=== PATIENT | male | born 1955 ===

== ENCOUNTER 2017-08-01 13:41 | Emergency (ER) | payer MEDICAID, MEDICARE ==
[2017-08-01 14:22] VITALS: O2SAT 98
--- NOTE | 2017-08-01 14:39 | ED PDOC ---
Arrival/HPI - General Historian: Patient - History of Present Illness Time/Duration: Other (see hpi) Context: Home <Matthew Pa - Last Filed: 08/01/17 15:08> <Nicci Davila - Last Filed: 08/05/17 09:51> - General Chief Complaint: Lower Extremity Problem/Injury Time Seen by Provider: 08/01/17 14:39 - History of Present Illness Narrative History of Present Illness (Text): 08/01/17 14:39 This 61 yo male with a pmh drug abuse, on Methadone, presents to this ED c/o arthralgia, and myalgias x 6 days. Patient stated he attends a Methadone clinic in [place], where he lives. However due to family emergency, he came to [place], and he has not taken Methadone since he left [place]. Patient denies sob, cp, abdominal pain, recent illness, fever, or abnormal gait. (Matthew Pa) Past Medical History - Provider Review Nursing Documentation Reviewed: Yes - Cardiac Hx Cardiac Disorders: Yes Hx Hypertension: Yes - Pulmonary Hx Respiratory Disorders: Yes Hx Bronchitis: Yes - Neurological Hx Neurological Disorder: No - HEENT Hx HEENT Disorder: No - Renal Hx Renal Disorder: No - Endocrine/Metabolic Hx Endocrine Disorders: No - Hematological/Oncological Hx Blood Disorders: No - Integumentary Hx Dermatological Disorder: No - Musculoskeletal/Rheumatological Hx Musculoskeletal Disorders: Yes Hx Back Pain: Yes - Gastrointestinal Hx Gastrointestinal Disorders: No - Genitourinary/Gynecological Hx Genitourinary Disorders: No - Psychiatric Hx Psychophysiologic Disorder: Yes Hx Anxiety: Yes Hx Substance Use: Yes (HEROIN) - Surgical History Other/Comment: HERNIA REPAIR - Anesthesia Hx Anesthesia: Yes <Matthew Pa P - Last Filed: 08/01/17 15:08> Family/Social History - Physician Review Nursing Documentation Reviewed: Yes Family/Social History: Other (noncontributory) Smoking Status: Heavy Smoker > 10 Cigarettes Daily Hx Alcohol Use: Yes Hx Substance Use: Yes (HEROIN) <Matthew aP P - Last Filed: 08/01/17 15:08> Allergies/Home Meds <Matthew Pa P - Last Filed: 08/01/17 15:08> <Nicci Davila - Last Filed: 08/05/17 09:51> Allergies/Adverse Reactions: Allergies No Known Allergies Allergy (Verified 07/30/17 19:56) Review of Systems - Review of Systems Constitutional: Normal. absent: Fatigue, Weight Change, Fevers Eyes: Normal ENT: Normal. absent: Sore Throat, Rhinorrhea Respiratory: Normal. absent: SOB, Cough Cardiovascular: Normal Gastrointestinal: Normal Genitourinary Male: Normal Musculoskeletal: Arthralgias, Myalgias Skin: Normal. absent: Rash, Cellulitis Neurological: Normal. absent: Headache, Dizziness, Focal Weakness, Gait Changes , Speech Changes, Facial Droop Endocrine: Normal Hemo/Lymphatic: Normal Psychiatric: Normal <Matthew Pa P - Last Filed: 08/01/17 15:08> Physical Exam Temperature: Afebrile Blood Pressure: Normal Pulse: Regular Respiratory Rate: Normal Appearance: Positive for: Well-Appearing, Non-Toxic, Comfortable Pain Distress: None Mental Status: Positive for: Alert and Oriented X 3 - Systems Exam Head: Present: Atraumatic, Normocephalic Pupils: Present: PERRL Extroacular Muscles: Present: EOMI Conjunctiva: Present: Normal Mouth: Present: Moist Mucous Membranes Neck: Present: Normal Range of Motion Respiratory/Chest: Present: Clear to Auscultation, Good Air Exchange. No: Respiratory Distress, Accessory Muscle Use Cardiovascular: Present: Regular Rate and Rhythm, Normal S1, S2. No: Murmurs Abdomen: No: Tenderness, Distention, Peritoneal Signs Back: Present: Normal Inspection Upper Extremity: Present: Normal Inspection, Normal ROM. No: Cyanosis, Edema Lower Extremity: Present: Normal Inspection, Normal ROM. No: Edema Neurological: Present: GCS=15, CN II-XII Intact, Speech Normal Skin: Present: Warm, Dry, Normal Color. No: Rashes Psychiatric: Present: Alert, Oriented x 3, Normal Insight, Normal Concentration. No: Suicidal Ideation, Homicidal Ideation, Delusional, Hallucinations, Intoxicated <Matthew Pa P - Last Filed: 08/01/17 15:08> Vital Signs Temp Pulse Resp BP Pulse Ox 08/01/17 15:35 98.5 F 96 H 20 165/109 H 98 08/01/17 15:33 94 H 165/109 H 08/01/17 15:30 94 H 165/109 H 08/01/17 14:16 98.9 F 103 H 16 161/104 H 98 Medical Decision Making Re-evaluation Time: 15:08 Reassessment Condition: Re-examined, Improved <Matthew Pa - Last Filed: 08/01/17 15:08> <Nicci Davila - Last Filed: 08/05/17 09:51> ED Course and Treatment: 08/01/17 15:08 Re-evaluation. Patient feels better. Discussed results and plan with patient who expresses understanding. All questions answered and there is agreement with the plan to discharge home with instructions. Patient stable for discharge. Return if symptoms persist or worsen. Patient was treated with Toradol IM, and Clonidine patch. Patient was recommended to f/u Methadone clinic, and to return to ED if symptoms worsen. ( Matthew Pa) - Medication Orders Current Medication Orders: Discontinued Medications Clonidine HCl (Catapres) 0.1 mg PO STAT STA Stop: 08/01/17 14:58 Last Admin: 08/01/17 15:30 Dose: 0.1 mg MAR Pulse and Blood Pressure Document 08/01/17 15:30 OCS (Rec: 08/01/17 15:32 OCS [id number]) Pulse Pulse Rate (60-90) 94 Blood Pressure Blood Pressure (100/60-150/90) 165/109 Clonidine HCl (Catapres Tts1 0.1 Mg/24 Hr) 1 patch TD STAT STA Stop: 08/01/17 14:56 Last Admin: 08/01/17 15:33 Dose: 1 patch MAR Pulse and Blood Pressure Document 08/01/17 15:33 OCS (Rec: 08/01/17 15:34 OCS [id number]) Pulse Pulse Rate (60-90) 94 Blood Pressure Blood Pressure (100/60-150/90) 165/109 MAR Transdermal Patch Site Document 08/01/17 15:33 OCS (Rec: 08/01/17 15:34 OCS [id number]) Transdermal Patch Site Transdermal Patch Site Left Thigh Ketorolac Tromethamine (Toradol) 60 mg IM STAT STA Stop: 08/01/17 14:58 Last Admin: 08/01/17 15:30 Dose: 60 mg MAR Pain Assessment Document 08/01/17 15:30 OCS (Rec: 08/01/17 15:30 OCS [id number]) Pain Reassessment Is this a pain reassessment? Yes Sleep Is patient sleeping during reassessment? 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 <Nicci Davila - Last Filed: 08/05/17 09:51> Disposition/Present on Arrival - Present on Arrival Any Indicators Present on Arrival: No History of DVT/PE: No History of Uncontrolled Diabetes: No Urinary Catheter: No History of Decub. Ulcer: No History Surgical Site Infection Following: None - Disposition Have Diagnosis and Disposition been Completed?: Yes Disposition Time: 15:11 Patient Plan: Discharge <Matthew Pa - Last Filed: 08/01/17 15:08> <Nicci Davila - Last Filed: 08/05/17 09:51> - Disposition Diagnosis: Methadone withdrawal without complication Disposition: HOME/ ROUTINE Condition: GOOD Additional Instructions: Call Methadone clinic for follow up visit. Take medication as instructed. Clonidine path is good for 7 days. Prescriptions: Naproxen 500 mg PO BID PRN #14 tab PRN Reason: Pain, Severe (8-10) Referrals: [facility] [Outside] - Follow up with primary [facility] [Outside] - Follow up with primary [facility] [Outside] - Follow up with primary Forms: [employer] [facility] (Ugandan)
[2017-08-01 15:34] VITALS: BP 165/109
[2017-08-01 15:36] VITALS: PULSE 96; RESP 20; TEMP 98.5
== END 2017-08-01 15:35 | disposition home or self-care (01) ==
LOC: ED 13:41 → MERGE 13:41 → ED 15:35
DX: F11.23 Opioid dependence with withdrawal (principal)
CPT/HCPCS: 96372; 99284; J1885

== ENCOUNTER 2017-08-14 23:27 | Emergency (ER) | payer MEDICAID, MEDICARE ==
[2017-08-14 23:47] VITALS: BP 110/76; PULSE 90; RESP 18; TEMP 98.3; O2SAT 99; BMI 26.6
--- NOTE | 2017-08-15 00:42 | ED PDOC ---
Arrival/HPI - General Chief Complaint: Medical Clearance Time Seen by Provider: 08/14/17 23:47 Historian: Patient - History of Present Illness Narrative History of Present Illness (Text): 08/15/17 00:41 A 61 year old male, whose past medical history includes drug abuse, on Methadone , presents to the emergency department complaining of possible withdrawal, due to being off Methadone for past two weeks. Patient feels that he might be withdrawing.Asking for Methadone. Patient denies any chest pain, shortness of breath, fever, abdominal pain or any other complaints at this time. Symptom Onset: Sudden Symptom Course: Unchanged Activities at Onset: Rest Context: Home Past Medical History - Provider Review Nursing Documentation Reviewed: Yes - Tetanus Immunization Tetanus Immunization: Unknown - Cardiac Hx Cardiac Disorders: Yes Hx Hypertension: Yes - Pulmonary Hx Respiratory Disorders: No - Neurological Hx Neurological Disorder: No - HEENT Hx HEENT Disorder: No - Renal Hx Renal Disorder: No - Endocrine/Metabolic Hx Endocrine Disorders: Yes - Hematological/Oncological Hx Blood Disorders: Yes - Integumentary Hx Dermatological Disorder: No - Musculoskeletal/Rheumatological Hx Musculoskeletal Disorders: Yes (left knee surgery ) - Gastrointestinal Hx Gastrointestinal Disorders: Yes - Genitourinary/Gynecological Hx Genitourinary Disorders: No - Psychiatric Hx Psychophysiologic Disorder: Yes Hx Anxiety: Yes Hx Depression: Yes Hx Substance Use: No - Surgical History Other/Comment: HERNIA REPAIR - Anesthesia Hx Anesthesia: Yes Family/Social History - Physician Review Nursing Documentation Reviewed: Yes Family/Social History: No Known Family HX Smoking Status: Smoker Currrent Status Unknown Hx Alcohol Use: Yes Frequency of alcohol use: Daily Hx Substance Use: No Allergies/Home Meds Allergies/Adverse Reactions: Allergies No Known Allergies Allergy (Verified 08/14/17 23:59) Home Medications: Home Meds Medication Instructions Recorded Confirmed ALPRAZolam [Xanax] 0.5 mg PO BID 09/08/15 09/08/15 Aspirin [Ecotrin] 81 mg PO DAILY 09/08/15 09/08/15 Chlordiazepoxide HCl 1 tab PO Q8 PRN 09/08/15 09/08/15 [Chlordiazepoxide HCl] Docusate Sodium [Dok] 100 mg PO BID 09/08/15 09/08/15 Gabapentin [Neurontin] 1 tab PO TID 09/08/15 09/08/15 Linagliptin [Tradjenta] 1 tab PO DAILY 09/08/15 09/08/15 Lisinopril/Hydrochlorothiazide 1 tab PO DAILY 09/08/15 09/08/15 [Zestoretic 20-12.5 mg Tablet] Sertraline [Zoloft] 50 mg PO DAILY 09/08/15 09/08/15 Trazodone HCl [Trazodone HCl] 50 mg PO HS 09/08/15 09/08/15 hydrOXYzine Pamoate [Vistaril] 1 tab PO Q8 09/08/15 09/08/15 Review of Systems - Physician Review All systems were reviewed & negative as marked: Yes - Review of Systems Constitutional: absent: Fevers Respiratory: absent: SOB Cardiovascular: absent: Chest Pain Gastrointestinal: absent: Abdominal Pain Physical Exam Vital Signs Reviewed: Yes Vital Signs Temp Pulse Resp BP Pulse Ox 08/14/17 23:47 98.3 F 90 18 110/76 99 Temperature: Afebrile Blood Pressure: Normal Pulse: Regular Respiratory Rate: Normal Appearance: Positive for: Well-Appearing, Non-Toxic, Comfortable Pain Distress: None Mental Status: Positive for: Alert and Oriented X 3 - Systems Exam Head: Present: Atraumatic, Normocephalic Pupils: Present: PERRL Extroacular Muscles: Present: EOMI Conjunctiva: Present: Normal Mouth: Present: Moist Mucous Membranes Neck: Present: Normal Range of Motion Respiratory/Chest: Present: Clear to Auscultation, Good Air Exchange. No: Respiratory Distress, Accessory Muscle Use Cardiovascular: Present: Regular Rate and Rhythm, Normal S1, S2. No: Murmurs Abdomen: No: Tenderness, Distention, Peritoneal Signs Back: Present: Normal Inspection Upper Extremity: Present: Normal Inspection. No: Cyanosis, Edema Lower Extremity: Present: Normal Inspection. No: Edema Neurological: Present: GCS=15, CN II-XII Intact, Speech Normal Skin: Present: Warm, Dry, Normal Color. No: Rashes Psychiatric: Present: Alert, Oriented x 3, Normal Insight, Normal Concentration Medical Decision Making ED Course and Treatment: 08/15/17 00:39 Impression: A 61 year old male with possible withdrawal. Plan: -- EKG -- Chest X-ray -- labs -- Reassess and disposition Prior Visits: Notes and results from previous visits were reviewed. Patient was last seen in the emergency department on 08/01/17 for evaluation of arthralgia and myalgia. Progress Notes: 08/15/17 01:29 EKG: Ordered, reviewed, and independently interpreted the EKG. Rate : 96 BPM Rhythm : NSR Interpretation : right bundle branch block, no acute changes 08/15/17 02:02 Patient refused labs, evaluation and eloped from the emergency department. - Lab Interpretations Lab Results: Lab Results 08/15/17 01:13: Urine Opiates Screen Negative, Urine Methadone Screen Negative, Ur Barbiturates Screen Negative, Ur Phencyclidine Scrn Negative, Ur Amphetamines Screen Negative, U Benzodiazepines Scrn Negative, U Oth Cocaine Metabols Negative, U Cannabinoids Screen Negative I have reviewed the lab results: Yes - RAD Interpretation Radiology Orders: 08/15/17 00:38 CHEST PORTABLE [RAD] Stat - EKG Interpretation Interpreted by ED Physician: Yes Type: 12 lead EKG - Scribe Statement The provider has reviewed the documentation as recorded by the Boby Abdullahi Provider Scribe Attestation: All medical record entries made by the Victorianoibglen were at my direction and personally dictated by me. I have reviewed the chart and agree that the record accurately reflects my personal performance of the history, physical exam, medical decision making, and the department course for this patient. I have also personally directed, reviewed, and agree with the discharge instructions and disposition. Disposition/Present on Arrival - Present on Arrival Any Indicators Present on Arrival: No History of DVT/PE: No History of Uncontrolled Diabetes: No Urinary Catheter: No History of Decub. Ulcer: No History Surgical Site Infection Following: None - Disposition Have Diagnosis and Disposition been Completed?: Yes Diagnosis: Drug-seeking behavior Disposition: ELOPEMENT - ER ONLY Disposition Time: 02:00 Condition: STABLE Forms: [employer] (Palestinian)
[2017-08-15 01:49] LABS: BARBITURATES, UR NEGATIVE (NEGATIVE); BENZODIAZEPINES, UR NEGATIVE (NEGATIVE); OPIATES, UR NEGATIVE (NEGATIVE); PHENCYCLIDINE, UR NEGATIVE (NEGATIVE)
--- NOTE | 2017-08-15 10:53 | CARD ---
APPROVED REPORT EKG Measurement Heart [id number] <Conclusion> Normal sinus rhythm Right bundle branch block Abnormal ECG
== END 2017-08-15 01:53 | disposition left against medical advice (07) ==
LOC: ED 23:27
DX: Z76.5 Malingerer [conscious simulation] (principal); I10 Essential (primary) hypertension; F19.10 Other psychoactive substance abuse, uncomplicated; F17.210 Nicotine dependence, cigarettes, uncomplicated
CPT/HCPCS: 93005; 99282; G0480